=== PATIENT | female | born 1950 | race Caucasian/White ===

== ENCOUNTER 2021-01-18 06:54 | Day surgery (SDC) | payer MEDICARE, BC ==
[~2021-01-18] VITALS: Ht 154.9 cm; Wt 67.8 kg
[2021-01-18] MEDS ORDERED: SYNTHROID0.075 MG/T (07:34)
[2021-01-18] MEDS ORDERED: K-DUR 10 MEQ T10 MEQ PO (07:35)
[2021-01-18] MEDS ORDERED: ALDACTONE 25MG25 M1 PO (07:35)
[2021-01-18] MEDS ORDERED: VITAMIN B COMPL1 SGL PO (07:36)
[2021-01-18] MEDS ORDERED: CHONDROITIN/GLU1 SGL (07:36)
[2021-01-18] MEDS ORDERED: PHARMASSURE MA500 MG PO (07:37)
[2021-01-18 07:38] VITALS: BP 132/77; PULSE 87; TEMP 97.1
[2021-01-18 08:35] VITALS: BP 110/61; PULSE 74
[2021-01-18 09:00] VITALS: BP 110/64; PULSE 74
[2021-01-18 09:15] VITALS: BP 112/70; PULSE 83
--- NOTE | 2021-01-18 15:13 | NUR ---
PT RETURNED FORM ENDO PROCEDURE ROOM INTO BAY #2. PT ALERT AND ORIENTATED. LUNGS CLEAR, HRR, BOWEL SOUNDS PRESENT. PT REQUESTS JELLO AND ORANGE JUICE. PT DENIES NAUSEA OR PAIN AT THIS TIME. , MATTHEW IN ROOM AT BEDSIDE. WILL CONT TO MONITOR PROGRESS.
--- NOTE | 2021-01-18 15:16 | NUR ---
PT TOLERATING JELLO AND ORANGE JUICE. PT DENIES PAIN OR NAUSEA AT THIS TIME. WILL CONT TO MONITOR.
--- NOTE | 2021-01-18 15:20 | NUR ---
PT TOLERATING FOOD AND FLUIDS WITHOUT DIFFICULTY. IV WAS DC'D TO RIGHT WRIST, PT TOLERATED WELL. PT WAS TAKEN TO FAMILY VEHICLE PER WC THROUGH PATIENT ENTRANCE, PT DRIVING. DISCHARGE INSTRUCTIONS GIVEN AND SIGNED.
== END 2021-01-18 09:30 | disposition home or self-care (01) ==
LOC: SDCO 06:54
DX: K29.51 Unspecified chronic gastritis with bleeding (principal); K22.4 Dyskinesia of esophagus; K74.60 Unspecified cirrhosis of liver; K72.00 Acute and subacute hepatic failure without coma; B17.2 Acute hepatitis E; D61.818 Other pancytopenia; E87.1 Hypo-osmolality and hyponatremia; E87.6 Hypokalemia; I10 Essential (primary) hypertension; E78.5 Hyperlipidemia, unspecified; K21.9 Gastro-esophageal reflux disease without esophagitis; M19.90 Unspecified osteoarthritis, unspecified site; D64.9 Anemia, unspecified; Z20.822 Contact with and (suspected) exposure to COVID-19; Z79.890 Hormone replacement therapy; Z79.899 Other long term (current) drug therapy; Z87.891 Personal history of nicotine dependence
CPT/HCPCS: J2704; J7030

== ENCOUNTER 2024-02-25 06:29 | Day surgery (SDC) | payer MEDICARE, BC ==
[2024-02-25] VITALS (12 sets, daily range): BP systolic 90–125; BP diastolic 44–61; PULSE 63–76; TEMP 97.1–98.2
[~2024-02-25] VITALS: Ht 152.4 cm; Wt 63.6 kg
[~2024-02-25 06:29] MED LIST: ALDACTONE 25MG25 M1 PO; CHONDROITIN/GLU1 SGL; K-DUR 10 MEQ T10 MEQ PO; LR 1,000 ML IV SCH; PHARMASSURE MA500 MG PO; SYNTHROID0.075 MG/T; VITAMIN B COMPL1 SGL PO
[2024-02-25] MEDS ORDERED: Midazolam 2 MG/2 ML VIAL ONE (09:13)
[2024-02-25] MEDS ORDERED: fentaNYL 50 MCG/ML 2 ML VIAL ONE ×2 (09:13→09:46)
[2024-02-25] MEDS ORDERED: Ondansetron 4 MG/2 ML VIAL ONE (09:13)
[2024-02-25] MEDS ORDERED: Lidocaine PF 2% (20 MG/ML) 5 ML VIAL ONE (09:13)
[2024-02-25] MEDS ORDERED: XIFAXAN550 MG PO (09:29)
[2024-02-25] MEDS ORDERED: LASIX 20MG TABL20 MG PO (09:30)
[2024-02-25] MEDS ORDERED: ATIVAN 0.50.5 MG/TAB PO (09:31)
[2024-02-25] MEDS ORDERED: STOOL SOFTENER100 M2 PO (09:32)
[2024-02-25] MEDS ORDERED: KRISTALOSE10 GM/PACK (09:32)
[2024-02-25] MEDS ORDERED: BUPivacaine PF 0.5% w EPI (1:200,000) 10 ML VIAL SQ ONE (10:20)
[2024-02-25] MEDS ORDERED: Lidocaine PF 2% (20 MG/ML) 5 ML VIAL SQ ONE (10:20)
[2024-02-25] MEDS ORDERED: Ondansetron 4 MG/2 ML VIAL IV PRN ×2 (11:00→12:45)
[2024-02-25] MEDS ORDERED: fentaNYL 50 MCG/ML 1 ML SYRINGE/VIAL [PACU/SDC ONLY] IV PRN (11:00)
[2024-02-25] MEDS ORDERED: HYDROmorphone 1 MG/1 ML SYRINGE [PACU/SDC ONLY] IV PRN (11:00)
[2024-02-25] MEDS ORDERED: Morphine 4 MG/ML VIAL IV PRN (12:45)
[2024-02-25] MEDS ORDERED: Acetaminophen 325 MG TAB PO PRN (12:45)
--- NOTE | 2024-02-25 13:04 | NUR ---
PT TO ROOM 324 PER BED WITH REPORT FROM ADRIANO MILLAN PACU @1250, TRANSPORTED BY MACIEL MILLAN. PT IS A/O X4, LUNGS CTA, BOWEL SOUNDS PRESENT. DRESSING TO LEFT BREAST CDI WITH GAUZE AND TAPE OVER INCISION. SCDS BILATERALLY. IV TO RFA PER GRAVITY. H20 PROVIDED PER PT REQUEST. FAMILY AT BEDSIDE.
--- NOTE | 2024-02-25 13:28 | NUR ---
PT UP TO BR VOIDED AND RETURNED TO BED WITH STEADY GAIT.
[2024-02-25] MEDS ORDERED: Spironolactone 25 MG TAB PO SCH (21:00)
[2024-02-25] MEDS ORDERED: rifAXIMin 550 MG TAB PO SCH (21:00)
--- NOTE | 2024-02-25 23:50 | NUR ---
patient lying in bed alert and oriented x4. denies chest pain and shortness of breath. left breast/axillary site with gauze dressing is CDI. IV in RF is patent, site is CDI. pt has no further needs, questions or concerns at this time. ambulates with steady gait. call light within reach. will continue to monitor.
[2024-02-26 04:00] VITALS: BP 96/40; PULSE 60; TEMP 98.3
[2024-02-26 04:37] VITALS: BP_SYST 96
[2024-02-26 07:20] LABS: HEMOGLOBIN 11.8 g/dl (12.5-16.0); MEAN CELL VOLUME 91 fl (80.0-100.0); MEAN CORPUSCULAR HEMOGLOBIN 32 pg (27-31); MEAN CORPUSCULAR HGB CONC 35 g/dl (33.0-37.0); MEAN PLATELET VOLUME 10.6 fl (7.4-10.4); PLATELET COUNT 59 K/mm3 (130-400); RED BLOOD COUNT 3.72 M/mm3 (4.10-5.30); REDCELL DISTRIBUTION WIDTH-CV 14.4 % (11.5-14.5)
[2024-02-26 07:22] VITALS: BP 126/69; PULSE 68; TEMP 97.8
--- NOTE | 2024-02-26 07:34 | NUR ---
UPDATED ON AM LABS AND HE CLEARED HER FOR DISCHARGE.
[2024-02-26 09:00] VITALS: BP_SYST 126
[2024-02-26] MEDS ORDERED: Furosemide 20 MG TAB PO SCH (09:00)
--- NOTE | 2024-02-26 09:59 | NUR ---
D: Events Administrative Assistant stopped by room on rounds. A: Pt was resting and content. Pt has no needs right now. P: Events Administrative Assistant informed pt that if she needed anything from the group sales representative area to let her nurse know. Events Administrative Assistant will follow up as needed.
--- NOTE | 2024-02-26 11:10 | NUR ---
DISCHARGE INSTRUCTIONS REVIEWED WITH PT AND . PT LEFT UNIT PER WHEEL CHAIR.
== END 2024-02-26 11:11 | disposition home or self-care (01) ==
LOC: SDCO 06:29 → SURG 06:29 → SDCO 11:15 → SURG 12:50 → SDCO 02-26 11:11
PROVIDERS: Surgery
DX: C50.412 Malignant neoplasm of upper-outer quadrant of left female breast (principal); Z17.0 Estrogen receptor positive status [ER+]; K74.02 Hepatic fibrosis, advanced fibrosis; D69.59 Other secondary thrombocytopenia; Z87.891 Personal history of nicotine dependence; K21.9 Gastro-esophageal reflux disease without esophagitis
CPT/HCPCS: OP; A4648; A9520-JZ; J0665; J0690; J2250; J2405; J2704; J3010; J7120